=== PATIENT | female | born 1965 | race Caucasian/White ===

== ENCOUNTER 2016-07-06 21:31 | Emergency (ER) | payer MEDICAID ==
[~2016-07-06] VITALS: Ht 175.3 cm; Wt 104.1 kg
[~2016-07-06 21:31] MED LIST: ALPR-475 PO; ASPI-496 PO; BUPR300T49 PO; CITA40TA12 PO; DOXE10CA PO; LAMO100T5 PO; MECL25TA4 PO; QUET25TA5 PO; QUET50TA5 PO
[2016-07-06 21:32] VITALS: BP 111/71
[2016-07-06] MEDS ORDERED: KETOROLAC 30 MG/1 ML ONE (22:08)
[2016-07-06] MEDS ORDERED: KETOROLAC 30 MG/1 ML IM ONE (22:30)
== END 2016-07-06 22:52 | disposition home or self-care (01) ==
LOC: ED 21:50
DX: M54.42 Lumbago with sciatica, left side (principal); M54.41 Lumbago with sciatica, right side; I10 Essential (primary) hypertension; G43.909 Migraine, unspecified, not intractable, without status migrainosus
CPT/HCPCS: 72110; 96372; 99284; J1885

== ENCOUNTER 2016-08-10 16:26 | Emergency (ER) | payer MEDICAID ==
[~2016-08-10] VITALS: Ht 175.3 cm; Wt 108.4 kg
[2016-08-10 17:48] LABS: BLOOD UREA NITROGEN 18 mg/dL (7-18)
[2016-08-10 19:16] VITALS: BP 141/70
== END 2016-08-10 19:18 | disposition home or self-care (01) ==
LOC: ED 19:02
DX: S09.90XA Unspecified injury of head, initial encounter (principal); S80.211A Abrasion, right knee, initial encounter; I10 Essential (primary) hypertension; W01.0XXA Fall on same level from slipping, tripping and stumbling without subsequent striking against object, initial encounter; Y93.89 Activity, other specified; Y92.488 Other paved roadways as the place of occurrence of the external cause; Y99.8 Other external cause status
CPT/HCPCS: 36415; 70450; 80048; 82040; 85025

== ENCOUNTER 2017-01-11 19:39 | Emergency (ER) | payer MEDICAID ==
[~2017-01-11] VITALS: Ht 175.3 cm; Wt 102.5 kg
[2017-01-11 19:44] VITALS: BP 128/85
[2017-01-11] MEDS ORDERED: ACET325T14 PO (20:04)
[2017-01-11] MEDS ORDERED: NAPR250T6 PO (20:05)
[2017-01-11] MEDS ORDERED: ALPR0.25 PO (20:05)
[2017-01-11] MEDS ORDERED: NAPR220C2 PO (20:06)
[2017-01-11] MEDS ORDERED: HYDROcodone/APAP 5/325 TABLET PO ONE (20:30)
[2017-01-11] MEDS ORDERED: IBUPROFEN 200 MG TABLET PO ONE (20:30)
[2017-01-11] MEDS ORDERED: HYDROcodone/APAP 5/325 TABLET ONE (20:41)
[2017-01-11] MEDS ORDERED: IBUPROFEN 200 MG TABLET ONE (20:41)
== END 2017-01-11 21:35 | disposition home or self-care (01) ==
LOC: ED 21:00
DX: M16.12 Unilateral primary osteoarthritis, left hip (principal); M25.562 Pain in left knee; I10 Essential (primary) hypertension; F31.9 Bipolar disorder, unspecified; Z90.49 Acquired absence of other specified parts of digestive tract; Z98.890 Other specified postprocedural states; Z88.8 Allergy status to other drugs, medicaments and biological substances
CPT/HCPCS: 99283; 99284